=== PATIENT | female | born 1995 | race American Indian/Alaskan Native ===

== ENCOUNTER 2020-01-28 19:38 | Emergency (ER) | payer SELFPAY ==
[2020-01-28 20:59] LABS: Basophils % (Auto) 0.6 % (0.0-1.8); Eosinophils # (Auto) 0.1 K/mm3 (0.0-0.4); Eosinophils % (Auto) 2.2 % (0.0-4.3); Hematocrit 37.2 % (30.3-42.9); Hemoglobin 12.2 gm/dl (10.1-14.3); Lymphocytes # (Auto) 1.6 K/mm3 (1.2-5.4); Lymphocytes % (Auto) 24.1 % (13.4-35.0); Mean Corpuscular HGB Conc 33 % (30-34); Mean Corpuscular Volume 75 fl (79-97); Monocytes # (Auto) 0.6 K/mm3 (0.0-0.8); Monocytes % (Auto) 9.1 % (0.0-7.3); Platelet Count 359 K/mm3 (140-440); Red Blood Count 4.99 M/mm3 (3.65-5.03); Red Cell Distribution Width 15.3 % (13.2-15.2)
[2020-01-28 21:20] LABS: Alanine Aminotransferase 8 units/L (7-56); Blood Urea Nitrogen 11 mg/dL (7-17); Calcium 9.2 mg/dL (8.4-10.2); Hemolysis Index 5
[2020-01-28 21:35] LABS: BUN/Creatinine Ratio 18
[2020-01-28 21:36] LABS: Bilirubin,Urine NEG (Negative); Blood,Urine SM (Negative); Color,Urine Yellow (Yellow); Mucus,Urine FEW /HPF
[2020-01-28] MEDS ORDERED: ACETAMINOPHEN 500 MG TAB PO ONE (23:59)
[2020-01-28] MEDS ORDERED: ONDANSETRON 4 MG ODT TAB PO ONE (23:59)
[2020-01-28] MEDS ORDERED: FAMOTIDINE 20 MG TAB PO ONE (23:59)
--- NOTE | 2020-01-29 01:46 | Emergency Department Report ---
ED Female HPI - General Chief complaint: Abdominal Pain Stated complaint: ABDOMINAL PAIN/CRAMPING AND BLEEDING Source: patient Mode of arrival: Ambulatory Limitations: No Limitations - History of Present Illness Initial comments: Patient is a nulliparous 24-year-old -[place] female with no past medical history presents to the ED with complaint of acute onset persistent suprapubic pain and vaginal bleeding for the last 1 week. Patient states that she was initially evaluated at another emergency department about a week ago when the symptoms began and had lab test results reviewed which showed hCG quant of 6. Patient states that she was advised to return to the ED subsequently for repeat hCG quant to confirm or miscarriage since the hCG quant was too low. Patient states that she has been having vaginal bleeding and persistent suprapubic pain since this incident occurred. Patient denies dizziness, syncope, chest pain, shortness of breath, nausea and vomiting or dizziness, fever, chills, dysuria, urinary frequency and urgency or vaginal discharge. MD Complaint: vaginal bleeding, pelvic pain (suprapubic pressure and pain) -: Sudden, week(s) (1) Location: suprapubic Radiation: non-radiating Severity: moderate Severity scale (0 -10): 4 Quality: cramping, sharp Consistency: intermittent Improves with: none Worsens with: none Are you Now?: No Last Menstrual Period: 01/22/20 EDC: 10/28/20 Associated Symptoms: denies other symptoms, vaginal bleeding, abdominal pain. denies: nausea/vomiting, fever/chills, headaches, loss of appetite, dysuria, hematuria, rash, shortness of breath, syncope, other - Related Data Sexually active: Yes : 0 Para: 0 A: 0 Previous Rx's Medication Instructions Recorded Last Taken Type Ibuprofen [Motrin] 600 mg PO Q8H PRN #30 tablet 01/29/20 Unknown Rx Ondansetron [Zofran Odt] 4 mg PO Q6HR PRN #15 tab.rapdis 01/29/20 Unknown Rx traMADoL [Ultram] 50 mg PO Q6HR PRN #12 tab 01/29/20 Unknown Rx Allergies Allergy/AdvReac Type Severity Reaction Status Date / Time No Known Allergies Allergy Unverified 01/28/20 20:15 ED Review of Systems ROS: Stated complaint: ABDOMINAL PAIN/CRAMPING AND BLEEDING Other details as noted in HPI Constitutional: denies: chills, fever Eyes: denies: eye pain, eye discharge, vision change ENT: denies: ear pain, throat pain Respiratory: denies: cough, shortness of breath, wheezing Cardiovascular: denies: chest pain, palpitations Endocrine: no symptoms reported Gastrointestinal: abdominal pain (suprapubic). denies: nausea, vomiting, diarrhea Genitourinary: abnormal menses (vaginal bleeding). denies: urgency, dysuria, discharge Musculoskeletal: denies: back pain, joint swelling, arthralgia Skin: denies: rash, lesions Neurological: denies: headache, weakness, paresthesias Psychiatric: denies: anxiety, depression Hematological/Lymphatic: denies: easy bleeding, easy bruising ED Past Medical Hx - Past Medical History Previous Medical History?: No - Surgical History Past Surgical History?: No - Social History Smoking Status: Former Smoker - Medications Home Medications: Home Medications Medication Instructions Recorded Confirmed Last Taken Type Ibuprofen [Motrin] 600 mg PO Q8H PRN #30 tablet 01/29/20 Unknown Rx Ondansetron [Zofran Odt] 4 mg PO Q6HR PRN #15 tab.rapdis 01/29/20 Unknown Rx traMADoL [Ultram] 50 mg PO Q6HR PRN #12 tab 01/29/20 Unknown Rx ED Physical Exam - General Limitations: No Limitations General appearance: alert, in no apparent distress - Head Head exam: Present: atraumatic, normocephalic, normal inspection - Eye Eye exam: Present: normal appearance, PERRL, EOMI Pupils: Present: normal accommodation - ENT ENT exam: Present: normal exam, normal orophraynx, mucous membranes moist, TM's normal bilaterally, normal external ear exam - Neck Neck exam: Present: normal inspection, full ROM - Respiratory Respiratory exam: Present: normal lung sounds bilaterally. Absent: respiratory distress, wheezes, rales, stridor, chest wall tenderness, accessory muscle use, decreased breath sounds, prolonged expiratory - Cardiovascular Cardiovascular Exam: Present: regular rate, normal rhythm, normal heart sounds. Absent: systolic murmur, diastolic murmur, rubs, gallop - GI/Abdominal GI/Abdominal exam: Present: soft, normal bowel sounds. Absent: distended, tenderness, guarding, rebound, hyperactive bowel sounds, hypoactive bowel sounds , organomegaly - Bi-manual exam: Present: other (Pelvic exam deferred patient declined) - Extremities Exam Extremities exam: Present: normal inspection, full ROM, normal capillary refill - Back Exam Back exam: Present: normal inspection, full ROM. Absent: tenderness, CVA tenderness (R), CVA tenderness (L), muscle spasm, paraspinal tenderness, vertebral tenderness - Neurological Exam Neurological exam: Present: alert, oriented X3, CN II-XII intact, normal gait, reflexes normal - Psychiatric Psychiatric exam: Present: normal affect, normal mood - Skin Skin exam: Present: warm, dry, intact, normal color. Absent: rash ED Course Vital Signs 01/28/20 20:08 Temperature 98.6 F Pulse Rate 63 Respiratory 16 Rate Blood Pressure 117/62 O2 Sat by Pulse 97 Oximetry ED Medical Decision Making - Lab Data Result diagrams: 01/28/20 20:19 01/28/20 20:19 - Medical Decision Making This is a nulliparous 24-year-old -[place] female with no past medical history presents to the ED with complaint of acute onset persistent suprapubic pain and vaginal bleeding for the last 1 week. Patient states that she was initially evaluated at another emergency department about a week ago when the symptoms began and had lab test results reviewed which showed hCG quant of 6. Patient states that she was advised to return to the ED subsequently for repeat hCG quant to confirm or miscarriage since the hCG quant was too low. Patient states that she has been having vaginal bleeding and persistent suprapubic pain since this incident occurred. In the ED, patient is alert and oriented x3 and is not in distress. Lab test results were reviewed and are all nonactionable including hCG quant which was less than 2. Patient was treated for pain in the ED and also given antiemetics by mouth. On reevaluation, patient symptoms resolved with medications. Patient was discharged home on pain medication and advised to follow-up with her primary care physician or [employer] physician in 3 to 5 days for reevaluation or return to the ED immediately if symptoms get worse. - Differential Diagnosis Dysmenorrhea; Complete miscarriage; Ovarian cyst; Fibroids; UTI Critical care attestation.: If time is entered above; I have spent that time in minutes in the direct care of this critically ill patient, excluding procedure time. ED Disposition Clinical Impression: Dysfunctional uterine hemorrhage, Dysmenorrhea Disposition: TO HOME OR SELFCARE Is pt being admited?: No Does the pt Need Aspirin: No Condition: Stable Instructions: Abdominal Pain (ED), Menorrhagia, [id number], Dysfunctional Uterine Bleeding, Dysmenorrhea, [id number] Additional Instructions: All lab test results were reviewed and are all nonactionable and hCG quant is ne gative. 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 Prescriptions: Ibuprofen [Motrin] 600 mg PO Q8H PRN #30 tablet PRN Reason: Pain traMADoL [Ultram] 50 mg PO Q6HR PRN #12 tab PRN Reason: Pain Ondansetron [Zofran Odt] 4 mg PO Q6HR PRN #15 tab.rapdis PRN Reason: Nausea Referrals: FRED RUIZ MD [Staff Physician] - 3-5 Days Time of Disposition: 01:44 Print Language: ARMENIAN
[2020-01-29 02:19] VITALS: BP 119/70
== END 2020-01-29 02:18 | disposition home or self-care (01) ==
LOC: ED 19:38
DX: N93.8 Other specified abnormal uterine and vaginal bleeding (principal); N92.0 Excessive and frequent menstruation with regular cycle; Z87.891 Personal history of nicotine dependence
CPT/HCPCS: 36415; 80053; 81001; 84702; 84703; 85025; 99283; Q0162